=== PATIENT | female | born 1995 | race Hispanic/Latino ===

== ENCOUNTER 2018-12-23 09:47 | Outpatient (CLI) | payer BC ==
--- NOTE | 2018-12-23 13:39 | MRI ---
MRI CERVICAL SPINE WITHOUT CONTRAST: Date: 12/23/18 HISTORY: M47.812 cervical spondylosis. Neck pain. Bilateral arm numbness. COMPARISON: None. FINDINGS: The cerebellar tonsils terminate at the level of the foramen magnum. The cord signal is normal. Angle l cervical lordosis. Paraspinal soft tissues are normal. No prevertebral swelling. Levels are as follows: C2-3: Normal disc. No neural foraminal or spinal canal narrowing. C3-4: There is mild disc desiccation at C3-4. There is mild uncinate process hypertrophy. No neural foraminal or spinal canal narrowing. C4-5: Normal disc. No neural foraminal or spinal canal narrowing. C5-6: Normal disc. No neural foraminal or spinal canal narrowing. C6-7: Normal disc. No neural foraminal or spinal canal narrowing. IMPRESSION: Mild disc desiccation at C3-4 with uncinate process hypertrophy, mild. No neural foraminal or spinal canal narrowing throughout the cervical spine. The cord is normal. Normal location of the cerebellar tonsils. POS: [facility]
--- NOTE | 2018-12-23 14:33 | MRI ---
MRI LUMBAR SPINE: HISTORY: Back pain. FINDINGS: Multiplanar multisequence noncontrast enhanced MRI images of lumbar spine obtained. RADIOGRAPHIC FINDINGS: T12-L1, L1-2, L2-3: Unremarkable. L3-4: There is a mild broad-based central disk protrusion minimally but not significantly compressin g the thecal sac. The lateral recesses are patent. No significant evidence of neural foraminal narr owing seen. L4-5: Minimal facet hypertrophy is seen. The central canal and neural foramen are patent. L5-S1: Some vacuum disk changes seen. No significant degree of central or neural foraminal narrowin g is seen. IMPRESSION: L3-4 central disk protrusion. POS: [facility]
== END 2018-12-23 09:48 | disposition home or self-care (01) ==
LOC: BICMRI 09:47
PROVIDERS: ATTEND Neurological Surgery
DX: M47.812 Spondylosis without myelopathy or radiculopathy, cervical region (principal); M47.816 Spondylosis without myelopathy or radiculopathy, lumbar region; M51.26 Other intervertebral disc displacement, lumbar region
CPT/HCPCS: 72141; 72148

== ENCOUNTER 2019-03-07 08:47 | Outpatient (CLI) | payer BC ==
--- NOTE | 2019-03-07 09:25 | ULT ---
ULTRASOUND THYROID: 03/07/2019 HISTORY: Neck swelling in 23-year-old female FINDINGS: Isthmus: 0.4 cm AP Right lobe: 4.2 x 1.9 x 2.0 cm Left lobe: 2.7 x 1.5 x 1.7 cm Thyroid parenchymal echogenicity is diffusely mildly heterogeneous. There is diffuse hyperemia demons trated by increased blood flow by Doppler. No discrete solid or cystic nodule is identified. IMPRESSION: Findings suggestive of either thyroiditis or Graves' disease.
== END 2019-03-07 08:48 | disposition home or self-care (01) ==
LOC: SCSULT 08:47
PROVIDERS: ATTEND Family Medicine
DX: R22.1 Localized swelling, mass and lump, neck (principal)
CPT/HCPCS: 76536

== ENCOUNTER 2020-05-03 11:56 | Emergency (ER) | payer BC, OTHER ==
[2020-05-04 15:35] LABS: SARS-CoV-2 MS2 Positive; SARS-CoV-2 N Gene Negative; SARS-CoV-2 S Gene Negative; SARS-CoV-2 orf1ab Negative
== END 2020-05-03 12:56 | disposition home or self-care (01) ==
LOC: ERS 11:56
DX: R05 Cough (principal); Z20.828 Contact with and (suspected) exposure to other viral communicable diseases
CPT/HCPCS: 87635; 99283; U0003